=== PATIENT | female | born 1955 | race Caucasian/White ===

== ENCOUNTER 2017-07-30 16:46 | Emergency (ER) | payer OTHER ==
[~2017-07-30] VITALS: Ht 154.9 cm; Wt 61.0 kg
[2017-07-30 19:15] VITALS: BP 104/75
== END 2017-07-30 19:15 | disposition home or self-care (01) ==
LOC: EMS 16:51
DX: S60.051A Contusion of right little finger without damage to nail, initial encounter (principal); M20.011 Mallet finger of right finger(s); E78.00 Pure hypercholesterolemia, unspecified; W22.8XXA Striking against or struck by other objects, initial encounter; Y93.89 Activity, other specified; Y92.89 Other specified places as the place of occurrence of the external cause; Y99.8 Other external cause status
CPT/HCPCS: 99284